=== PATIENT | female | born 1960 | race Caucasian/White ===

== ENCOUNTER 2023-10-29 10:00 | Emergency (ER) | payer MEDICAID ==
[~2023-10-29] VITALS: Ht 170.2 cm; Wt 87.7 kg
[2023-10-29 10:02] VITALS: TEMP 97.8; O2SAT 98
[2023-10-29 11:01] LABS: URINE HCG NEGATIVE (NEG)
[2023-10-29 11:02] LABS: BILIRUBIN,URINE NEGATIVE (Neg); CLARITY,URINE CLOUDY (Clear); COLOR,URINE YELLOW (Yellow); GLUCOSE, URINE NEGATIVE (Neg); KETONES,URINE NEGATIVE (Neg); LEUKOCYTE ESTERASE ,URINE SMALL (Neg); NITRITES, URINE POSITIVE (Neg); OCCULT BLOOD,URINE MODERATE (Neg); PH,URINE 5.5 (4.8-8.0); PROTEIN,URINE NEGATIVE (Neg); UROBILINOGEN,URINE 0.2 E.U/dL (0.2-1.0)
[2023-10-29 11:04] LABS: UA COLLECTION TYPE CLN CATCH MIDSTREAM
[2023-10-29 11:11] LABS: BASOPHILS % (AUTO) 0.5 % (0-1); EOSINOPHILS # (AUTO) 0.2 X10'3 (0-0.9); EOSINOPHILS % (AUTO) 2.8 % (0-6); HEMATOCRIT 39.2 % (35.0-45.0); HEMOGLOBIN 12.9 g/dl (12.0-16.0); LYMPHOCYTES # (AUTO) 2.6 X10'3 (1.1-4.8); LYMPHOCYTES % (AUTO) 32.3 % (21-51); MEAN CORPUSCULAR HGB CONC 32.8 g/dL (33.0-36.5); MEAN CORPUSCULAR VOLUME 94.3 FL (78-98); MONOCYTES # (AUTO) 0.5 X10'3 (0-0.9); MONOCYTES % (AUTO) 6.7 % (2-12); NEUTROPHILS # (AUTO) 4.6 X10'3 (1.8-7.7); NEUTROPHILS % (AUTO) 57.7 % (42-75); PLATELET COUNT 266 X10'3 (140-440); RED BLOOD COUNT 4.15 X10'6 (4.20-5.60); WHITE BLOOD COUNT 7.9 X10'3 (4.5-11.0)
[2023-10-29 11:14] LABS: ALANINE AMINOTRANSFERASE 20 U/L (12-78); ALBUMIN 3.5 G/DL (3.4-5.0); ALBUMIN/GLOBULIN RATIO 0.7 (1.1-1.5); ALKALINE PHOSPHATASE 90 IU/L (46-116); ANION GAP 10 (8-16); ASPARTATE AMINO TRANSFERASE 22 U/L (10-37); BILIRUBIN,TOTAL 0.5 MG/DL (0.1-1.0); BLOOD UREA NITROGEN 13 MG/DL (7-18); BUN/CREATININE RATIO 13.1 (10.0-20.0); CALCIUM 9.1 MG/DL (8.5-10.1); CHLORIDE 106 MMOL/L (99-107); CREATININE 0.99 MG/DL (0.40-0.90); GLUCOSE 131 MG/DL (70-104); LIPASE 33 U/L (16-77); POTASSIUM 3.8 MMOL/L (3.5-5.1); SODIUM 143 MMOL/L (135-145); TOTAL CARBON DIOXIDE 26.7 MMOL/L (24-32); TOTAL PROTEIN 8.2 G/DL (6.4-8.2); eCRCL 57 ML/MIN; eGFR 57 ML/MIN
[2023-10-29 11:15] LABS: WBC,URINE TNTC /HPF (0-4)
[2023-10-29 11:16] LABS: SQUAMOUS EPITHELIAL CELL,UR MANY /LPF (FEW)
[2023-10-29 11:17] LABS: WBC CLUMPS,URINE FEW /HPF (NEGATIVE)
[2023-10-29 11:20] LABS: BACTERIA,URINE 4+ /HPF (Neg); RBC,URINE 50-100 /HPF (0-2)
[2023-10-29] MEDS: ondansetron/PF 4mg/2ml inj IV ONE (11:59)
[2023-10-29] MEDS: ketorolac trometh. 30mg/ml inj. IV ONE (12:01)
[2023-10-29] MEDS: normal saline 1000ml 1,000 ML IV ONE (12:01)
[2023-10-29] MEDS: cephalexin 250mg capsule PO ONE (12:01)
[2023-10-29] MEDS ORDERED: CEPH-585 PO (12:43)
[2023-10-29] MEDS: HYDROcodone/acetaminophen 5mg/325mg tablet PO ONE (12:52)
[2023-10-29 13:07] VITALS: BP 149/87; PULSE 86; RESP 16
== END 2023-10-29 13:10 | disposition home or self-care (01) ==
LOC: ER 10:00
DX: N12 Tubulo-interstitial nephritis, not specified as acute or chronic (principal); Z88.1 Allergy status to other antibiotic agents; Z88.8 Allergy status to other drugs, medicaments and biological substances; Z88.5 Allergy status to narcotic agent; Z79.2 Long term (current) use of antibiotics
CPT/HCPCS: 36415; 80053; 81001; 81025; 83690; 85025; 96361; 96374; 96375; 99284; J1885; J2405; J7030

== ENCOUNTER 2024-01-27 11:38 | Emergency (ER) | payer MEDICAID ==
[~2024-01-27] VITALS: Ht 170.2 cm; Wt 102.3 kg
[2024-01-27 13:12] LABS: BILIRUBIN,URINE NEGATIVE (Neg); CLARITY,URINE CLOUDY (Clear); COLOR,URINE AMBER (Yellow); GLUCOSE, URINE NEGATIVE (Neg); KETONES,URINE NEGATIVE (Neg); LEUKOCYTE ESTERASE ,URINE SMALL (Neg); NITRITES, URINE POSITIVE (Neg); OCCULT BLOOD,URINE LARGE (Neg); PH,URINE 5.5 (4.8-8.0); PROTEIN,URINE 30 mg/dl (Neg); UROBILINOGEN,URINE 0.2 E.U/dL (0.2-1.0)
[2024-01-27 13:13] LABS: URINE HCG NEGATIVE (NEG)
[2024-01-27 13:17] LABS: UA COLLECTION TYPE CLN CATCH MIDSTREAM
[2024-01-27 13:19] LABS: BACTERIA,URINE 3+ /HPF (Neg); RBC,URINE TNTC /HPF (0-2); SQUAMOUS EPITHELIAL CELL,UR MANY /LPF (FEW); WBC,URINE TNTC /HPF (0-4)
[2024-01-27 13:27] LABS: BASOPHILS # (AUTO) 0.1 X10'3 (0-0.2); BASOPHILS % (AUTO) 0.7 % (0-1); EOSINOPHILS # (AUTO) 0.3 X10'3 (0-0.9); EOSINOPHILS % (AUTO) 3.4 % (0-6); HEMATOCRIT 39.7 % (35.0-45.0); HEMOGLOBIN 13.2 g/dl (12.0-16.0); LYMPHOCYTES # (AUTO) 2.8 X10'3 (1.1-4.8); LYMPHOCYTES % (AUTO) 33.3 % (21-51); MEAN CORPUSCULAR HGB CONC 33.2 g/dL (33.0-36.5); MEAN CORPUSCULAR VOLUME 96.4 FL (78-98); MEAN PLATELET VOLUME 8.1 FL (7.4-10.4); MONOCYTES # (AUTO) 0.6 X10'3 (0-0.9); MONOCYTES % (AUTO) 6.7 % (2-12); NEUTROPHILS # (AUTO) 4.8 X10'3 (1.8-7.7); NEUTROPHILS % (AUTO) 55.9 % (42-75); PLATELET COUNT 279 X10'3 (140-440); RED BLOOD COUNT 4.12 X10'6 (4.20-5.60); RED CELL DISTRIBUTION WIDTH 12.9 % (11.5-14.5); WHITE BLOOD COUNT 8.5 X10'3 (4.5-11.0)
[2024-01-27 13:50] LABS: ALANINE AMINOTRANSFERASE 19 U/L (12-78); ALBUMIN 3.6 G/DL (3.4-5.0); ALBUMIN/GLOBULIN RATIO 0.8 (1.1-1.5); ALKALINE PHOSPHATASE 79 IU/L (46-116); ANION GAP 9 (8-16); ASPARTATE AMINO TRANSFERASE 33 U/L (10-37); BILIRUBIN,TOTAL 0.4 MG/DL (0.1-1.0); BLOOD UREA NITROGEN 12 MG/DL (7-18); BUN/CREATININE RATIO 12.6 (10.0-20.0); CHLORIDE 104 MMOL/L (99-107); CREATININE 0.95 MG/DL (0.40-0.90); GLUCOSE 112 MG/DL (70-104); LIPASE 31 U/L (16-77); POTASSIUM 3.9 MMOL/L (3.5-5.1); SODIUM 139 MMOL/L (135-145); TOTAL CARBON DIOXIDE 26.4 MMOL/L (24-32); TOTAL PROTEIN 8.1 G/DL (6.4-8.2); eCRCL 59 ML/MIN; eGFR 59 ML/MIN
[2024-01-27] MEDS ORDERED: LEVO250T74 PO (14:24)
[2024-01-27 14:53] VITALS: BP 152/87; PULSE 82; RESP 16; TEMP 98.5; O2SAT 98
[2024-01-27 16:25] LABS: URINE AMPHETAMINE SCREEN NEGATIVE (Neg); URINE BARBITUATE SCREEN NEGATIVE (Neg); URINE BENZODIAZEPINES SCREEN NEGATIVE (Neg); URINE CANNABINOID SCREEN NEGATIVE (Neg); URINE COCAINE SCREEN NEGATIVE (Neg); URINE METHADONE SCREEN NEGATIVE (Neg); URINE OPIATE SCREEN NEGATIVE (Neg); URINE PHENCYCLIDINE SCREEN NEGATIVE (Neg)
== END 2024-01-27 14:55 | disposition home or self-care (01) ==
LOC: ER 11:38
DX: N39.0 Urinary tract infection, site not specified (principal); N12 Tubulo-interstitial nephritis, not specified as acute or chronic; Z88.1 Allergy status to other antibiotic agents; Z88.5 Allergy status to narcotic agent
CPT/HCPCS: 36415; 80053; 80305; 81001; 81025; 83690; 85025; 99283

== ENCOUNTER 2024-11-07 12:11 | Outpatient (CLI) | payer MEDICARE, OTHER ==
--- NOTE | 2024-11-07 14:06 | VASCULAR REPORT ---
INDICATION: Postprandial pain TECHNIQUE: Multiple real-time sonographic images of the kidneys and bladder were obtained. Duplex Doppler evaluation including color Doppler and spectral/pulsed waveform analysis of the mesent tomas arteries was performed. COMPARISON: None FINDINGS: Superior mesenteric artery, 207.5 cm/sec Celiac artery, 191.8 cm/sec Hepatic artery, 125.4 cm/sec Splenic artery, 90.0 cm/sec Inferior mesenteric artery, 98.3 cm/sec Proximal aorta, 96.4 cm/sec IMPRESSION: Patent mesenteric arteries. No evidence of significant stenosis and/or occlusion. Unremarkable preprandial flow visualized.
== END 2024-11-07 23:59 | disposition home or self-care (01) ==
LOC: VAS 12:11
PROVIDERS: ATTEND Specialist
DX: R10.33 Periumbilical pain (principal)
CPT/HCPCS: 93975